=== PATIENT | female | born 1940 | race Caucasian/White ===

== ENCOUNTER 2020-05-12 07:10 | Emergency (ER) | payer MEDICARE, BC ==
[~2020-05-12] VITALS: Wt 76.7 kg
[2020-05-12] MEDS ORDERED: SIMVASTATIN40 M1 PO (07:33)
[2020-05-12] MEDS ORDERED: ULTRAM50 M1 PO (09:09)
[2020-05-12 09:35] VITALS: BP 135/60
== END 2020-05-12 09:30 | disposition home or self-care (01) ==
LOC: ED 07:10
DX: S92.511A Displaced fracture of proximal phalanx of right lesser toe(s), initial encounter for closed fracture (principal); E78.5 Hyperlipidemia, unspecified; Z88.0 Allergy status to penicillin; W19.XXXA Unspecified fall, initial encounter; X50.1XXA Overexertion from prolonged static or awkward postures, initial encounter; Y92.22 Religious institution as the place of occurrence of the external cause
CPT/HCPCS: 13854; L4396

== ENCOUNTER → 2023-12-01 | Outpatient (CLI) | payer MEDICARE, BC ==
[~2023-12-01] MED LIST: SIMVASTATIN40 M1 PO; ULTRAM50 M1 PO
[2023-12-01 15:51] LABS: ALBUMIN 4.3 g/dL (3.4-4.8)
[2023-12-01 15:53] LABS: CALCIUM 9.8 mg/dL (8.3-10.5)
[2023-12-01 15:54] LABS: TOTAL PROTEIN 6.9 g/dL (6.2-8.1)
[2023-12-01 15:56] LABS: TOTAL BILIRUBIN 0.4 mg/dL (0.2-1.2)
== END ==
LOC: LAB 15:21
PROVIDERS: Internal Medicine
DX: C50.912 Malignant neoplasm of unspecified site of left female breast (principal)

== ENCOUNTER → 2024-03-27 | Outpatient (CLI) | payer MEDICARE, BC ==
[2024-05-16 10:45] LABS: ALBUMIN 4.3 g/dL (3.4-4.8); CALCIUM 9.7 mg/dL (8.3-10.5); TOTAL BILIRUBIN 0.4 mg/dL (0.2-1.2)
== END ==
LOC: LAB 01:00
PROVIDERS: Nurse Practitioner
DX: C50.912 Malignant neoplasm of unspecified site of left female breast (principal)

== ENCOUNTER → 2024-07-24 | Outpatient (CLI) | payer MEDICARE, BC ==
[2024-07-24 16:28] LABS: ALBUMIN 4.2 g/dL (3.4-4.8)
[2024-07-24 16:29] LABS: CALCIUM 10.2 mg/dL (8.3-10.5)
[2024-07-24 16:30] LABS: TOTAL PROTEIN 6.9 g/dL (6.2-8.1)
[2024-07-24 16:32] LABS: TOTAL BILIRUBIN 0.5 mg/dL (0.2-1.2)
== END ==
LOC: LAB 16:08
PROVIDERS: Nurse Practitioner
DX: C50.912 Malignant neoplasm of unspecified site of left female breast (principal)

== ENCOUNTER → 2024-11-26 | Outpatient (CLI) | payer MEDICARE, BC ==
[2024-11-26 11:41] LABS: ALBUMIN 4.3 g/dL (3.4-4.8)
[2024-11-26 11:42] LABS: CALCIUM 10.3 mg/dL (8.3-10.5)
[2024-11-26 11:44] LABS: TOTAL PROTEIN 7.1 g/dL (6.2-8.1)
[2024-11-26 11:45] LABS: TOTAL BILIRUBIN 0.6 mg/dL (0.2-1.2)
== END ==
LOC: LAB 11:21
PROVIDERS: Nurse Practitioner
DX: C50.912 Malignant neoplasm of unspecified site of left female breast (principal)

== ENCOUNTER → 2025-02-26 | Outpatient (CLI) | payer MEDICARE, BC ==
[2025-02-26 16:03] LABS: ALBUMIN 4.2 g/dL (3.4-4.8)
[2025-02-26 16:05] LABS: CALCIUM 9.1 mg/dL (8.3-10.5)
[2025-02-26 16:06] LABS: TOTAL PROTEIN 7.2 g/dL (6.2-8.1)
[2025-02-26 16:08] LABS: TOTAL BILIRUBIN 0.3 mg/dL (0.2-1.2)
== END ==
LOC: LAB 15:44
PROVIDERS: Nurse Practitioner
DX: C50.912 Malignant neoplasm of unspecified site of left female breast (principal)